=== PATIENT | male | born 1950 | race African-American/Black ===

== ENCOUNTER → 2018-07-02 | Day surgery (SDC) | payer MEDICARE ==
[2018-07-01 09:01] VITALS: BMI 24.4
[~2018-07-02] MED LIST: LACTATED RINGERS 1,000 ML IV ONE; PROPOFOL 10 MG/ML 20 ML VIAL IV ONE
[2018-07-02 11:27] VITALS: TEMP 97.6
--- NOTE | 2018-07-02 12:24 | P.PCN ---
Date of Procedure: 07/02/18 Procedure(s) Performed: BRIEF HISTORY: Patient is a 68-year-old pleasant male, scheduled for an elective colonoscopy as a part of value should of prior history of colon polyps. Last endoscopy was 5 years ago. PROCEDURE PERFORMED: Colonoscopy with snare polypectomy PREOPERATIVE DIAGNOSIS: History of colon polyps. IV sedation per Anesthesia. PROCEDURE: After informed consent was obtained, the patient, was brought into the endoscopy unit. IV sedation was administered by Anesthesia under continuous monitoring. Digital rectal examination was normal. Initially the Olympus CF- 160 flexible video colonoscope was then inserted in the rectum, gradually advanced into the cecum without any difficulty. Careful examination was performed as the scope was gradually being withdrawn. Ileocecal valve and the appendiceal orifice were visualized and appeared normal. Prep was fair.. Mucosa of the cecum, ascending colon, appeared normal. In the hepatic flexure there were 2 polyps measuring 2-3 mm in size both of which were sessile and removed by snare polypectomy. Rest of the transverse colon, descending colon, sigmoid colon, and rectum appeared normal. Retroflexion was performed in the rectum and no lesions were seen. The patient tolerated the procedure well. IMPRESSION: 2-3 mm 2 hepatic flexure polyps status post polypectomy Rest of the colon appeared normal RECOMMENDATIONS: Findings of this examination were discussed with the patient as his family. He was advised to follow with the biopsy results. If the biopsy shows adenoma, he can have a repeat colonoscopy in 5 years.
[2018-07-02 12:48] VITALS: BP 135/78; PULSE 78; RESP 18
== END ==
LOC: ORWHC2ENDO 10:59
PROVIDERS: ATTEND Internal Medicine Gastroenterology
DX: Z12.11 Encounter for screening for malignant neoplasm of colon (principal); K63.5 Polyp of colon; Z86.010 Personal history of colon polyps; E78.5 Hyperlipidemia, unspecified; Z87.891 Personal history of nicotine dependence; E07.9 Disorder of thyroid, unspecified; F39 Unspecified mood [affective] disorder; Z79.899 Other long term (current) drug therapy
CPT/HCPCS: 88305; 45385; J2704

== ENCOUNTER 2024-01-29 11:30 | Day surgery (SDC) | payer MEDICARE ==
[~2024-01-29 11:30] MED LIST changes: +LACTATED RINGERS 1,000 ML BAG ONE; -LACTATED RINGERS 1,000 ML IV ONE; -PROPOFOL 10 MG/ML 20 ML VIAL IV ONE
[2024-01-29] MEDS ORDERED: PROPOFOL 10 MG/ML 20 ML VIAL IV ONE (11:50)
--- NOTE | 2024-02-05 15:55 | OP ---
OPERATIVE REPORT DATE OF SERVICE : 01/29/2024 REQUESTING PHYSICIAN: Dr. Vicente. BRIEF HISTORY: The patient is a 74-year-old pleasant white male scheduled for an elective colonoscopy as a part of evaluation for prior history of colon polyps. Last colonoscopy was 5 years ago. PROCEDURE PERFORMED: Colonoscopy with snare polypectomy. PREOPERATIVE DIAGNOSIS: History of colon polyps. ANESTHESIA: IV sedation per Anesthesia. DESCRIPTION OF PROCEDURE: After informed consent was obtained from the patient's chart, he was brought into the endoscopy unit. IV conscious sedation was administered by Anesthesia and continuous monitoring. Initial digital rectal examination was normal. The Olympus CF-190 video colonoscope was then inserted into the rectum and gradually advanced into the cecum. Careful examination was performed as the scope was gradually being withdrawn. The ileocecal valve and appendiceal orifice were visualized and appeared normal. The prep was excellent. Mucosa of the cecum had a 3 mm polyp that was removed by cold snare polypectomy. In the ascending colon, there was a 5 mm polyp removed by cold snare polypectomy. In the transverse colon, there was a 7 mm polyp removed by cold snare polypectomy. The transverse colon, descending colon, sigmoid colon and rectum appeared normal. In the rectum, retroflexion was performed. Grade 2 internal hemorrhoids were seen. The patient tolerated the procedure well. IMPRESSION: 1. 3 mm cecal polyp, status post cold snare polypectomy. 2. 5 mm ascending colon polyp, status post cold snare polypectomy. 3. 7 mm transverse colon polyp, status post cold snare polypectomy. 4. Small internal hemorrhoids. RECOMMENDATIONS: Findings of this examination were discussed with the patient as well as the family. He was advised to follow up with the biopsy results. If the biopsy reveals adenoma, he can have a repeat colonoscopy in 5 years. MMODL / IJN: [id number] /
== END 2024-01-29 12:37 ==
LOC: ORWHC2ENDO 11:30
PROVIDERS: ATTEND Internal Medicine Gastroenterology
DX: Z12.11 Encounter for screening for malignant neoplasm of colon (principal); D12.0 Benign neoplasm of cecum; D12.2 Benign neoplasm of ascending colon; D12.3 Benign neoplasm of transverse colon; K64.8 Other hemorrhoids; Z86.010 Personal history of colon polyps
CPT/HCPCS: 45385; 88305